=== PATIENT | female | born 1970 | race Caucasian/White ===

== ENCOUNTER 2016-03-24 05:14 | Emergency (ER) | payer MEDICARE ==
[2016-03-24] MEDS ORDERED: SODIUM CHLORIDE 0.9% 1,000 ML ONE (05:27)
[2016-03-24] MEDS ORDERED: ONDANSETRON 4 MG VIAL ONE (05:27)
[2016-03-24] MEDS ORDERED: PROMETHAZINE 25 MG/ML VIAL ONE (05:53)
[2016-03-24] MEDS ORDERED: SODIUM CHLORIDE 0.9% 50 ML IV ONE (05:54)
[2016-03-24] MEDS ORDERED: Meclizine HCl 25 MG TAB ONE (06:43)
== END 2016-03-24 07:53 | disposition home or self-care (01) ==
LOC: ER 05:14
CPT/HCPCS: 36415 ×2; 80053 ×2; 81001 ×2; 85025 ×2; 96361 ×2; 96365 ×2; 96372 ×2; 96375 ×2; 99285; G0479; J2405; J2550